=== PATIENT | female | born 1940 | race Caucasian/White ===

== ENCOUNTER 2021-01-29 13:11 | Emergency (ER) | payer MEDICARE, MEDICAID ==
[~2021-01-29] VITALS: Ht 162.6 cm; Wt 67.0 kg
[2021-01-29] MEDS ORDERED: MORPHINE SULFATE 4 MG/ML CPJ (NOT FOR IM USE) IV STA (13:44)
[2021-01-29 14:05] LABS: BASOPHILS % 0.9 % (0.0-2.0); EOSINOPHILS % 4.8 % (0.0-5.0); HEMATOCRIT. 36.6 % (36.0-48.0); HEMOGLOBIN. 12.7 g/dL (12.0-16.0); LYMPHOCYTES % 15.4 % (20.0-50.0); MEAN CORPUSCULAR HEMOGLOBIN 32.1 pg (28.0-32.0); MEAN CORPUSCULAR VOLUME 92.7 fL (81.0-99.0); MEAN PLATELET VOLUME 9.9 fl (7.4-10.4); MONOCYTES % 7.2 % (2.0-8.0); NEUTROPHILS % 71.7 % (40.0-76.0); PLATELET 140 x1000/uL (130-400); RED BLOOD CELL COUNT 3.95 mill/uL (4.2-5.4)
[2021-01-29 14:11] LABS: CHLORIDE 106 mEq/L (98-107)
[2021-01-29] MEDS ORDERED: PROPOFOL 200MG/20ML VIAL IV ONE (17:15)
[2021-01-29 19:53] VITALS: BP 109/58
== END 2021-01-29 20:01 | disposition home or self-care (01) ==
LOC: ER 13:11
DX: S43.015A Anterior dislocation of left humerus, initial encounter (principal); M54.2 Cervicalgia; Y93.89 Activity, other specified; W01.0XXA Fall on same level from slipping, tripping and stumbling without subsequent striking against object, initial encounter; I48.91 Unspecified atrial fibrillation; I11.0 Hypertensive heart disease with heart failure; I50.9 Heart failure, unspecified; Z79.01 Long term (current) use of anticoagulants; Y92.89 Other specified places as the place of occurrence of the external cause; Z79.899 Other long term (current) drug therapy
CPT/HCPCS: 23650; 36415; 70450; 72125; 73030; 80053; 85025; 93005; 96374; 99152; 99285; J2270; J2704; A4565